=== PATIENT | female | born 1965 | race African-American/Black ===

== ENCOUNTER 2021-05-18 15:18 | Outpatient (CLI) | payer BC | END 2021-05-18 15:19 | disposition home or self-care (01) | LOC: CSHMAMMO 15:18 | PROVIDERS: ATTEND Family Medicine | DX: Z12.31 Encounter for screening mammogram for malignant neoplasm of breast (principal) | CPT/HCPCS: 77063; 77067 ==

== ENCOUNTER 2024-08-03 14:54 | Outpatient (CLI) | payer BC | END 2024-08-03 14:55 | disposition home or self-care (01) | LOC: CSHMAMMO 14:54 | PROVIDERS: ATTEND Family Medicine | DX: Z12.31 Encounter for screening mammogram for malignant neoplasm of breast (principal) | CPT/HCPCS: 77063; 77067 ==